=== PATIENT | female | born 2000 | race Hispanic/Latino ===

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

== ENCOUNTER 2022-09-10 12:21 | Emergency (ER) | payer OTHER | END 2022-09-10 16:11 | disposition home or self-care (01) | LOC: ERS 12:21 | DX: S00.93XA Contusion of unspecified part of head, initial encounter (principal); F17.290 Nicotine dependence, other tobacco product, uncomplicated; Y04.8XXA Assault by other bodily force, initial encounter | CPT/HCPCS: 70450; 96372 ==

== ENCOUNTER 2023-03-04 15:48 | Emergency (ER) | payer OTHER ==
[2023-03-04] MEDS ORDERED: Ketorolac Tromethamine 30 MG/ML VIAL ONE (16:27)
== END 2023-03-04 16:50 | disposition home or self-care (01) ==
LOC: ERS 15:48
DX: S20.212A Contusion of left front wall of thorax, initial encounter (principal); F17.290 Nicotine dependence, other tobacco product, uncomplicated; I10 Essential (primary) hypertension; X58.XXXA Exposure to other specified factors, initial encounter
CPT/HCPCS: 71045; 93005; 96372; J1885